=== PATIENT | female | born 1950 | race African-American/Black ===

== ENCOUNTER 2025-03-16 18:47 | Emergency (ER) | payer OTHER, SELFPAY ==
--- NOTE | ~2025-03-16 | CT_ITS ---
CT HEAD NON-CONTRAST Clinical History: new headache, history of tumor Comparison: None Technique: Unenhanced axial images skull base to vertex Coronal, sagittal reformats CT images acquired with automatic exposure control for dose reduction DLP: 605 mGy-cm Findings: 2.2 cm broad-based hyperdense lesion right posterior fossa near porus acusticus. Sulci, ventricles: Unremarkable. No intracerebral hemorrhage. No evidence acute territorial infarct. No mass effect, midline shift. Bony calvarium intact. Visualized paranasal sinuses: Clear. Mastoid air cells: Clear. IMPRESSION: 1. 2.2 cm possible meningioma right posterior fossa. Recommend MRI, if not previously characterized. Reviewed, dictated and finalized at location R. UNTS PAYABLE COORDINATOR IMPRESSION: 1. 2.2 cm possible meningioma right posterior fossa. Recommend MRI, if not pre viously characterized.
--- NOTE | ~2025-03-16 | XR_ITS ---
Examination: XR chest 2V Clinical History: cough, shortness of breath Comparison: None Technique: PA and Lateral Findings: Cardiomediastinal silhouette normal size and configuration. Lungs clear. No acute bony abnormality. IMPRESSION: 1. No acute cardiopulmonary findings. Reviewed, dictated and finalized at location R. T DESK HOST
[2025-03-16 19:28] VITALS: BP 148/80; PULSE 93; RESP 16; TEMP 36.5; O2SAT 100
--- NOTE | 2025-03-16 23:17 | ECG_ITS ---
Test Date: 2025-03-16 23:27:55 Measurements Intervals [place] Rate: 88 P: 250 IN: 237 QRS: -84 QRSD: 154 T: -22 QT: 521 QTc: 632 Interpretive Statements ATRIAL FLUTTER/TACHYCARDIA WITH NORMAL VENTRICULAR RESPONSE RIGHT BUNDLE BRANCH BLOCK LEFT ANTERIOR FASCICULAR BLOCK BASELINE ARTIFACT- I, II, III, V4-V6 ABNORMAL ECG No previous ECG available for comparison Electronically Signed On 03-17-2025 08:31:52 [employer] by Sal Alatorre D.O.
--- NOTE | 2025-03-16 23:28 | ED_ITS ---
HPI - General Adult General Chief complaint: Headache Stated complaint: LEW Time Seen by Provider: 03/16/25 21:28 History of Present Illness HPI narrative: This is a 75-year-old female with history of apparent benign brain mass, hypothyroidism, hypertension who presents the ED for flu-like symptoms. Patient states for the past 2 weeks, she has been having cough productive of yellow- green sputum, nasal congestion, right-sided headache. She has been exposed to her sister who is a emergency service restorer for 2 small children that had similar symptoms. She has had subjective fevers. Has intermittent shortness of breath but no chest pain. Related Data Allergies Allergy/AdvReac Type Severity Reaction Status Date / Time No Known Allergies Allergy Verified 03/16/25 19:34 Review of Systems 2 Review of Systems: Gen.: Denies fevers or chills Eyes: Denies eye pain or visual change ENT: As per HPI Respiratory: As per HPI CV: Denies chest pain or palpitations GI: Denies abdominal pain nausea, emesis or diarrhea denies burning, urgency, frequency or hematuria Musculoskeletal: Denies back pain or muscle pain Neuro: Denies numbness, tingling, weakness or focal weakness Skin: Denies rash Except as documented, all other systems reviewed and negative Exam 2 Narrative: APPEARANCE: No acute distress, nontoxic, resting in bed EYES: EOMI, PERRL. Mild rightward nystagmus HEENT: Normocephalic, atraumatic, OMM RESPIRATORY: No respiratory distress Clear to auscultation bilaterally with no rhonchi wheezing or rales. CARDIOVASCULAR: Regular rate and rhythm without murmurs rubs or gallops. ABDOMINAL: Soft, nontender, nondistended, no rebound or guarding MUSCULOSKELETAl: Moves all extremities. No clubbing, cyanosis or edema. NEURO: Awake and alert. Following commands, speech normal, no focal deficits. NIHSS 0 SKIN:: Warm, dry. No rashes lesions or abrasions PSYCHIATRIC: Normal affect/mood, Course Vital Signs Vital signs: Vital Signs Temperature 97.7 F 03/16/25 19:28 Pulse Rate 93 03/16/25 19:28 Respiratory Rate 16 03/16/25 19:28 Blood Pressure 148/80 H 03/16/25 19:28 Pulse Oximetry 100 03/16/25 19:28 Oxygen Delivery Room Air 03/16/25 19:28 Temperature 97.7 F 03/16/25 19:28 Pulse Rate 57 L 03/17/25 01:37 Respiratory Rate 16 03/17/25 01:37 Blood Pressure 155/58 H 03/17/25 01:37 Pulse Oximetry 100 03/17/25 01:37 Oxygen Delivery Room Air 03/16/25 19:28 [facility] Narrative Medical decision making narrative: 75-year-old female Presenting for flu-like symptoms and headache. On initial evaluation patient was in no acute distress afebrile, hemodynamic stable. Differentials include but are not limited to: Viral syndrome, strep pharyngitis, viral pharyngitis, sinusitis, laryngitis, BACKBREAKER, RPA, intracranial mass, intracranial hemorrhage Notable exam findings: Heart and lungs clear. Mild or pharyngeal erythema I personally reviewed the patient's lab result. Notable lab findings: Mild anemia at 11.3. CMP without significant abnormalities. Troponin negative. UA clear. COVID/flu/RSV negative. I personally reviewed the patient's images and interpret as follows: Chest x- ray: Normal cardiac silhouette, no pleural effusions, no pulmonary vascular congestion, possible right lower lobe consolidation CT head showed a 2.2 cm mass to the right parietal region likely consistent with a meningioma. I personally reviewed the patient's EKGs: Normal sinus rhythm rate of 80, left axis deviation, left anterior fascicular, right bundle-branch, QT prolonged at 521, T-wave inversions in inferior leads, no ST changes Patient has some improvement of her symptoms with Tylenol. She may have a right lower lobe pneumonia. Given her symptoms and the a chest x-ray findings, she was given Rocephin. She will be given a prescription for amoxicillin. She was advised follow-up with her PCP the next week for re-evaluation. Patient and family are agreeable to this plan. Given strict return precautions. Differential Diagnosis Differential Diagnosis: Viral syndrome, strep pharyngitis, viral pharyngitis, sinusitis, laryngitis, BACKBREAKER, RPA, intracranial mass, intracranial hemorrhage Lab Data [facility] Lab Attestation statement: I personally reviewed the patient's lab results. 03/17/25 00:29 03/17/25 00:29 Labs: Lab Results 03/17/25 Range/Units 00:29 WBC 6.2 (4.5-10.0) K/mm3 RBC 3.94 L (4.2-5.4) M/mm3 Hgb 11.3 L (12.0-15.0) g/dL Hct 35.5 L (37.0-47.0) % MCV 90.1 (80-100) fl MCH 28.7 (26-34) pg MCHC 31.8 L (32-36) g/dl RDW 14.8 H (11.5-14.5) % Plt Count 246 (150-375) k/mm3 MPV 9.9 (7.4-10.4) fl Immature Gran % (Auto) 0.3 (0-0.5) % Neut % (Auto) 63.8 (45.5-73.1) % Lymph % (Auto) 25.0 (18.3-44.2) % [place] % (Auto) 8.2 (2.6-8.5) % Eos % (Auto) 2.1 (0-4.4) % Baso % (Auto) 0.6 (0.2-1.2) % Lymph # (Auto) 1.55 (0.9-3.2) K/mm3 [place] # (Auto) 0.5 (0.1-0.6) K/mm3 Eos # (Auto) 0.1 (0-0.3) K/mm3 Baso # (Auto) 0.0 (0.0-0.1) K/mm3 Abs Immat Gran (auto) 0.02 (0.00-0.031) K/mm3 Absolute Neuts (auto) 3.9 (1.3-6.7) K/mm3 Absolute Nucleated RBC 0.000 (0.0-0.012) K/mm3 Nucleated RBC % 0.0 (0.0-0.2) % Sodium 137 (137-145) mmol/L Potassium 4.1 (3.4-5.0) mmol/L Chloride 106 (98-107) mmol/L Carbon Dioxide 25 (22-30) mmol/L Anion Gap 6 (4-12) mmol/L BUN 14 (7-17) mg/dL Creatinine 0.67 L (0.7-1.0) mg/dL Estim Creat Clear Calc 62 ml/min Estimated GFR > 60 (59 - ) Glucose 98 (65-110) mg/dL Calcium 8.3 L (8.4-10.2) mg/dL Total Bilirubin 0.8 (0.2-1.3) mg/dL AST 29 (14-36) U/L ALT 23 (6-35) U/L Alkaline Phosphatase 107 (38-126) U/L Troponin I < 0.012 (0.000-0.034) ng/mL Total Protein 8.0 (6.3-8.2) g/dL Albumin 4.0 (3.5-5.1) g/dL Urine Color Yellow (Yellow) Urine Appearance Clear (Clear) Urine pH 7.0 (5.0-9.0) Ur Specific [place] 1.013 (1.001-1.035) Urine Protein Negative (Negative) mg/dL Urine Glucose (UA) Negative (Negative) mg/dL Urine Ketones Negative (Negative) mg/dL Ur Blood (Man) Negative (Negative) Urine Nitrate Negative (Negative) Urine Bilirubin Negative (Negative) Urine Urobilinogen 0.2 (<2.0) mg/dL Leukocyte Esterase Rfl 1+ H (Negative) [place]ONYA/UL Urine RBC 0-2 (0-2) /hpf Urine WBC 6-10 H (0-3) /hpf Ur Squamous Epith Cells None seen (Few) /hpf Urine Bacteria None seen /hpf Urine Casts 0-2 Influenza A (RT-PCR) Negative (Negative) Influenza B (RT-PCR) Negative (Negative) RSV (RT-PCR) Negative (Negative) SARS-CoV-2 RNA (RT-PCR) Negative (Negative) Discharge Plan Discharge Clinical Impression: Mass of brain Community acquired pneumonia Qualifiers: Laterality: right Lung location: lower lobe of lung Qualified Code(s): J18.9 - Pneumonia, unspecified organism Headache Qualifiers: Headache type: unspecified Headache chronicity pattern: acute headache I ntractability: not intractable Qualified Code(s): R51.9 - Headache, unspecified Patient Disposition: Home Condition: Stable Instructions: Antibiotic Form, Acute Headache (ED), Community Acquired Pneumonia (ED) Additional Instructions: Lab work was reassuring. Chest x-ray showed possible pneumonia so you were given an antibiotic for this. CT scan of your head showed the brain mass that was 2.2 cm that is likely consistent with a meningioma, this should be continued to be monitored further. Follow up with her PCP in the next week for re- evaluation. Return the ED for any new or worsening symptoms. Patient Language: Greek Prescriptions: New amoxicillin 500 mg capsule 1,000 mg PO Q12H Qty: 10 0RF Follow-up/Referrals: Fabi Ryan MD [Physician, Family Practice] UNKNOWN,DOCTOR [Non-Staff]
[2025-03-17 00:37] LABS: Hematocrit 35.5 % (37.0-47.0); Hemoglobin 11.3 g/dL (12.0-15.0); Immature Granulocyte Percent A 0.3 % (0-0.5); Lymphocytes Absolute Auto 1.55 K/mm3 (0.9-3.2); Mean Corpuscular HGB Conc 31.8 g/dl (32-36); Mean Corpuscular Hemoglobin 28.7 pg (26-34); Mean Corpuscular Volume 90.1 fl (80-100); Nucleated Red Blood Cells Absolute Auto 0.000 K/mm3 (0.0-0.012); Nucleated Red Blood Cells Perc 0.0 % (0.0-0.2); Platelet Count Result 246 k/mm3 (150-375); Red Blood Count 3.94 M/mm3 (4.2-5.4); White Blood Count 6.2 K/mm3 (4.5-10.0)
[2025-03-17 00:39] LABS: Add Urine Microscopic? YES; Appearance Urine Clear (Clear); Glucose Urine UA Negative (Negative); Leukocyte Esterase Ur 1+ LEU/UL (Negative); Nitrate Urine Negative (Negative); Non Pathogenic Casts 0-2; Specific Grav Ur 1.013 (1.001-1.035)
[2025-03-17 00:48] LABS: Alanine Aminotransferase 23 U/L (6-35); Albumin Level 4.0 g/dL (3.5-5.1); Alkaline Phosphatase 107 U/L (38-126); Anion Gap 6 mmol/L (4-12); Aspartate Amino Transferase 29 U/L (14-36); Bilirubin,Total 0.8 mg/dL (0.2-1.3); Blood Urea Nitrogen 14 mg/dL (7-17); Calcium 8.3 mg/dL (8.4-10.2); Carbon Dioxide 25 mmol/L (22-30); Chloride 106 mmol/L (98-107); Estimated CRCL calculation 62 ml/min; Estimated Glomerular Filt Rate > 60; Glucose 98 mg/dL (65-110); Potassium 4.1 mmol/L (3.4-5.0); Sodium 137 mmol/L (137-145); Total Protein 8.0 g/dL (6.3-8.2)
[2025-03-17 00:59] LABS: Troponin I < 0.012 ng/mL (0.000-0.034)
[2025-03-17 01:12] LABS: Influenza A QL RT-PCR Negative (Negative); Influenza B QL RT-PCR Negative (Negative); RSV RNA, RT-PCR Negative (Negative); SARS-CoV-2 RNA PCR Negative (Negative)
[2025-03-17] MEDS: ACETAMINOPHEN 500 MG TABLET 1000 MG PO (01:24)
[2025-03-17] MEDS: cefTRIAXone 2 GM in SODIUM CHLORIDE 0.9% IV 100 ML 200 ML IVPB (01:36)
[2025-03-17 01:37] VITALS: BP 155/58; PULSE 57; RESP 16; O2SAT 100
== END 2025-03-17 02:08 | disposition home or self-care (01) ==
PROVIDERS: Emergency Provider Student in an Organized Health Care Education/Training Program
DX: J18.9 Pneumonia, unspecified organism (principal); R51.9 Headache, unspecified; G93.9 Disorder of brain, unspecified; Z20.822 Contact with and (suspected) exposure to COVID-19; I10 Essential (primary) hypertension; E03.9 Hypothyroidism, unspecified
CPT/HCPCS: 36415; 70450; 71046; 80053; 81001; 84484; 85025; 87086; 87637; 93005; 96365; 99284; A9270; J0696